=== PATIENT | female | born 1980 | race African-American/Black ===

== ENCOUNTER 2022-03-28 09:06 | Outpatient (CLI) | payer BC, SELFPAY ==
[2022-03-28 09:45] LABS: Basophils Percent Auto 1.1 % (0.2-1.2); Eosinophils Absolute Auto 0.1 K/mm3 (0-0.3); Hematocrit 37.1 % (37.0-47.0); Hemoglobin 12.1 g/dL (12.0-15.0); Immature Platelet Fraction Pct 11.6 % (0.9-11.2); Lymphocytes Percent Auto 28.1 % (18.3-44.2); Mean Corpuscular HGB Conc 32.6 g/dl (32-36); Mean Corpuscular Volume 98.1 fl (80-100); Mean Platelet Volume 12.1 fl (7.4-10.4); Monocytes Absolute Auto 0.4 K/mm3 (0.1-0.6); Monocytes Percent Auto 11.2 % (2.6-8.5); Neutrophils Absolute Auto 2.1 K/mm3 (1.3-6.7); Neutrophils Percent Auto 57.6 % (45.5-73.1); Platelet Count Result 186 k/mm3 (150-375); Red Blood Count 3.78 M/mm3 (4.2-5.4); Red Cell Distribution Width 11.9 % (11.5-14.5); White Blood Count 3.6 K/mm3 (4.5-10.0)
[2022-03-28 10:19] LABS: Alanine Aminotransferase 15 U/L (6-35); Albumin Level 4.7 g/dL (3.5-5.1); Alkaline Phosphatase 50 U/L (38-126); Anion Gap 6 mmol/L (8-16); Aspartate Amino Transferase 49 U/L (14-36); Blood Urea Nitrogen 12 mg/dL (7-17); Calcium 8.4 mg/dL (8.4-10.2); Carbon Dioxide 28 mmol/L (22-30); Chloride 104 mmol/L (98-107); Cholesterol 139 mg/dL (0-200); Estimated Glomerular Filt Rate > 60; Glucose 95 mg/dL (65-110); HDL Direct 69 mg/dL; Potassium 4.3 mmol/L (3.4-5.0); Sodium 138 mmol/L (137-145); Triglycerides 53 mg/dL (<150)
[2022-03-28 10:28] LABS: LDL Cholesterol Direct 38 mg/dL
[2022-03-28 10:34] LABS: Beta HCG Quantitative < 2.39 mIU/ML
[2022-03-28 12:14] LABS: Vitamin D 25 Hydroxy 29.5 ng/mL
[2022-03-28 14:17] LABS: Hemoglobin A1C 4.4 % (<5.7)
[2022-04-02 07:51] LABS: FSH 5.2 mIU/mL (***); Progesterone 0.9 ng/mL (***); Prolactin 10.9 ng/mL (***)
[2022-04-03 22:41] LABS: Estradiol, Ultrasensitive 138 pg/mL
[2022-04-08 17:26] LABS: Testosterone Free 3.4 pg/mL (0.1-6.4); Testosterone Total 43 ng/dL (2-45)
== END 2022-03-28 09:07 | disposition home or self-care (01) ==
PROVIDERS: Visit Provider Obstetrics & Gynecology
DX: N92.0 Excessive and frequent menstruation with regular cycle (principal)
CPT/HCPCS: 36415; 80053; 80061; 82306; 82670; 83001; 83036; 84144; 84146; 84402; 84403; 84702; 85025; 85055

== ENCOUNTER 2022-04-08 09:20 | Outpatient (CLI) | payer BC, SELFPAY ==
--- NOTE | ~2022-04-08 | MM_ITS ---
EXAMINATION: MM screening kyra BI w karime HISTORY: Screening mammogram TECHNIQUE: Craniocaudal and mediolateral oblique 3-D tomosynthesis images were obtained and synthetic 2-D images were generated. CAD analysis was submitted and interpreted. COMPARISON: No prior mammogram is available for comparison at this institution. BREAST PARENCHYMAL COMPOSITION: The breasts are extremely dense, which lowers the sensitivity of mamm ography. FINDINGS: There is no evidence of suspicious mass, calcification, or architectural distortion to sugg est malignancy in either breast. There has been no suspicious interval change. IMPRESSION: 1. No mammographic evidence of malignancy. 2. Recommend routine screening mammography in one year. BI-RADS Category 1: Negative Reviewed, dictated and finalized at location A. ORK ARCHITECT
== END 2022-04-08 09:21 | disposition home or self-care (01) ==
PROVIDERS: Visit Provider Obstetrics & Gynecology
DX: Z12.31 Encounter for screening mammogram for malignant neoplasm of breast (principal)
CPT/HCPCS: 77063; 77067

== ENCOUNTER 2023-04-24 12:21 | Outpatient (CLI) | payer BC, SELFPAY ==
--- NOTE | ~2023-04-24 | MMUS_ITS ---
EXAMINATION: MM diagnostic kyra BI w karime, US breast LT limited HISTORY: Palpable lump of the lower inner quadrant of the left breast TECHNIQUE: Craniocaudal, mediolateral, and mediolateral oblique 3-D tomosynthesis images of the perez ts were performed and synthetic 2-D images were generated. CAD analysis was submitted and interpreted . High resolution limited left breast ultrasound was performed. COMPARISON: 04/08/2022 BREAST PARENCHYMAL COMPOSITION: The breasts are extremely dense, which lowers the sensitivity of mamm ography. FINDINGS: MAMMOGRAPHIC FINDINGS: Right breast: No suspicious mass, calcification, or architectural distortion are identified to sugges t malignancy. There has been no suspicious interval change. Left breast: No mammographic correlate is identified for the reported palpable abnormality of the low er inner left breast. An asymmetry is present in the far posterior third of the upper outer quadrant of the breast at the 1:00 location 5 cm deep to the nipple on the craniocaudal view. ULTRASOUND: No sonographic correlate is identified for the reported palpable abnormality of the lower inner left breast. There is a 4 mm cyst at the 1:00 location 1 cm from the nipple at posterior depth which may c orrespond with the mammographic finding in question. IMPRESSION: 1. No specific mammographic or sonographic correlate is identified for the reported palpable abnormal ity of concern of the lower inner left breast. Further evaluation at this time should be based on cli nical assessment. Continued follow-up physical examination is recommended. 2. Recommend 6 month follow-up left diagnostic mammogram and possible ultrasound are recommended for the left breast asymmetry seen on the craniocaudal view. BI-RADS category 3, probably benign findings. Reviewed, dictated and finalized at location A. NTRYMAN IMPRESSION: 1. No specific mammographic or sonographic correlate is identified for the repo rted palpable abnormality of concern of the lower inner left breast. Further ev aluation at this time should be based on clinical assessment. Continued follow- up physical examination is recommended. 2. Recommend 6 month follow-up left diagnostic mammogram and possible ultrasoun d are recommended for the left breast asymmetry seen on the craniocaudal view. BI-RADS category 3, probably benign findings.
== END 2023-04-24 12:22 | disposition home or self-care (01) ==
LOC: ANHIMG 12:23
PROVIDERS: Visit Provider Obstetrics & Gynecology
DX: N63.24 Unspecified lump in the left breast, lower inner quadrant (principal)
CPT/HCPCS: 76642; 77062; 77066; G0279

== ENCOUNTER 2023-10-26 12:55 | Outpatient (CLI) | payer BC, SELFPAY ==
--- NOTE | ~2023-10-26 | MMUS_ITS ---
EXAMINATION: MM diagnostic kyra LT w karime, US breast LT limited HISTORY: Follow-up left breast asymmetry TECHNIQUE: Additional 3-D tomosynthesis images of the left breast were performed and synthetic 2-D im ages were generated. CAD analysis was submitted and interpreted. High resolution Limited left breast ultrasound was performed. COMPARISON: Comparison to multiple prior studies sequentially, with oldest reviewed study dated 03/14. BREAST PARENCHYMAL COMPOSITION: Dense: The breasts are extremely dense, which lowers the sensitivity of mammography. FINDINGS: MAMMOGRAPHIC FINDINGS: There is a focal asymmetry laterally in the left breast, posterior third, seen on exaggerated cc view only. There are no suspicious calcifications or architectural distortion. ULTRASOUND: Limited left breast ultrasound: At 1:00, 1 cm from the nipple, there is a 3 mm cyst. At 12:00, 1 cm f rom the nipple there is a 3 mm cyst. At 3:30, 7 cm from the nipple there is an oval hypoechoic parall el oriented mass with echogenic hilum measuring 0.5 mm without posterior shadowing. There is marginal vascularity. This is compatible with a lymph node may correspond to the mammographic finding. IMPRESSION: 1. Probable benign intramammary lymph node of the left breast which may correspond to the mammographi c finding. 2. Recommend 6 month follow-up diagnostic left mammogram and ultrasound recommended. BI-RADS category 3, probably benign findings. Reviewed, dictated and finalized at location B. IMPRESSION: 1. Probable benign intramammary lymph node of the left breast which may corresp ond to the mammographic finding. 2. Recommend 6 month follow-up diagnostic left mammogram and ultrasound recomme nded. BI-RADS category 3, probably benign findings.
== END 2023-10-26 12:56 | disposition home or self-care (01) ==
LOC: ANHIMG 12:56
PROVIDERS: Visit Provider Obstetrics & Gynecology
DX: N64.89 Other specified disorders of breast (principal)
CPT/HCPCS: 76642; 77061; 77065; G0279

== ENCOUNTER 2024-04-29 13:23 | Outpatient (CLI) | payer BC, SELFPAY ==
--- NOTE | ~2024-04-29 | MMUS_ITS ---
EXAMINATION: MM diagnostic kyra BI w karime, US breast LT limited HISTORY: Follow-up left breast masses. TECHNIQUE: Additional 3-D tomosynthesis images of the breasts were performed and synthetic 2-D images were generated. CAD analysis was submitted and interpreted. High resolution Limited left breast ultr asound was performed. COMPARISON: Comparison to multiple prior studies sequentially, with oldest reviewed study dated 03/14. BREAST PARENCHYMAL COMPOSITION: Dense: The breasts are extremely dense, which lowers the sensitivity of mammography. FINDINGS: MAMMOGRAPHIC FINDINGS: The breasts are stable. No new masses, calcifications or architectural distortion in either breast to suggest malignancy. ULTRASOUND: Limited left breast ultrasound: At 12:00, 1 cm from the nipple there is a 3 mm cyst. At 1:00, 1 cm fr om the nipple there is an oval hypoechoic 4 mm mass with low level internal echoes and posterior acou stic enhancement. No internal vascularity, likely complicated cysts. At 3:00, 7 cm from the nipple th ere is an oval parallel oriented 4 mm hypoechoic mass without significant posterior features. There i s internal vascularity. This is unchanged from prior study allowing for technique. IMPRESSION: 1. Stable benign-appearing left breast masses allowing for technique. 2. Given one year of interval stability, recommend 12 month followup bilateral mammogram and Limited left breast ultrasound BI-RADS category 3, probably benign findings. Reviewed, dictated and finalized at location A. CULTURAL ADVISER IMPRESSION: 1. Stable benign-appearing left breast masses allowing for technique. 2. Given one year of interval stability, recommend 12 month followup bilateral mammogram and Limited left breast ultrasound BI-RADS category 3, probably benign findings.
--- OUTSIDE RECORDS SUMMARY | 2024-05-05 06:56 | XMS_ITS | Clinical Summary ---
Author Organization [facility] Address [address] [place] [address]. [place], [place] [id number] [place] [id number] Care Team Providers Care Chair Mechanic Name Role Phone None, Provider MD Primary Care Provider Unavaila ble Allergies No known active allergies Social History Tobacco Use Types Packs/Day Years Used Date Smoking Tobacco: Never Assessed Comments Unknown Sex and Gender Information Value Date Recorded Sex Assigned at Not on file Legal Sex Female 3:59 PM AB INITIO ETL DEVELOPER Gender Identity Not on file Sexual Orientation Not on file Last Filed Vital Signs Vital Sign Reading Time Taken Comments Blood Pressure 130/80 03/13/2021 4:14 PM AB INITIO ETL DEVELOPER Pulse 81 03/13/2021 4:14 PM AB INITIO ETL DEVELOPER Temperature 36.7 ??C (98.1 ??F) 03/13/2021 4:14 PM CS T Respiratory Rate 18 03/13/2021 4:14 PM AB INITIO ETL DEVELOPER Oxygen Saturation 98% 03/13/2021 4:14 PM AB INITIO ETL DEVELOPER Inhaled Oxygen Concentration - - Weight 63.5 kg (140 lb) 03/13/2021 4:14 PM AB INITIO ETL DEVELOPER Height 162.6 cm (5' 4 ) 03/13/2021 4:14 PM AB INITIO ETL DEVELOPER Body Mass Index 24.03 03/13/2021 4:14 PM AB INITIO ETL DEVELOPER Plan of Treatment Health Maintenance Due Date Last Done Comments Cervical Cancer Screening Pa p Smear (Age 30 to 64) Every 3 Years 1979 Colorectal Cancer Screening Colonoscopy (10 Years) 1979 Annual Physical 1982 Hepatitis C 1997 DTaP, Tdap and Td Vaccines ( 1 - Tdap) 1998 Hepatitis B Vaccines (1 of 3 - 19+ 3-dose series) 1998 Cervical Cancer Screening Pa p with HPV Testing (Age 30 to 64) Every 5 Years 2009 Cervical Cancer Screening wi th HPV 2009 Mammogram Screening 2019 COVID-19 Vaccine (3 2023-2 5 season) 2023 12/04/2020, 11/13/2020 Influenza Adult (#1) 2024 HPV Vaccines Aged Out No longer eligi ble based on patient's age to complete this topic Meningococcal B Vaccine Aged Out No l onger eligible based on patient's age to complete this topic Meningococcal Vaccine Aged Out No duc brandyn eligible based on patient's age to complete this topic Pneumococcal Vaccine: Pediatrics (0 to 5 Years) and At-Risk Patients (6 to 64 Years) Aged Out No longer eligible b ased on patient's age to complete this topic RSV Immunizations Under 20 Months Aged Out No longer eligible b ased on patient's age to complete this topic Insurance [facility] [facility] Care Teams Chair Mechanic Relationship Specialty Start Date End Date None, Provider, PCP - General 03/13/21
== END 2024-04-29 13:24 | disposition home or self-care (01) ==
LOC: ANHIMG 13:24
PROVIDERS: Visit Provider Obstetrics & Gynecology
DX: N63.24 Unspecified lump in the left breast, lower inner quadrant (principal)
CPT/HCPCS: 76642; 77062; 77066; G0279